=== PATIENT | female | born 1965 | race Caucasian/White ===

== ENCOUNTER 2016-12-12 07:38 | Day surgery (SDC) | payer OTHER ==
[2016-12-12] MEDS ORDERED: LACTATED RINGERS 1,000 ML ONE (07:44)
[2016-12-12] MEDS ORDERED: IV START KIT ONE (07:44)
[2016-12-12] MEDS ORDERED: PROPOFOL 40 ML IV ONE (09:08)
[2016-12-12] MEDS ORDERED: LIDOCAINE 2% (PRES FREE) 5 ML VIAL ONE (09:08)
== END 2016-12-12 10:50 | disposition home or self-care (01) ==
LOC: SDC 07:38
PROVIDERS: ATTEND Family Medicine
PROC: 0DJD8ZZ Inspection of Lower Intestinal Tract, Via Natural or Artificial Opening Endoscopic (ICD-10-PCS; principal; 2016-12-12)
DX: Z12.11 Encounter for screening for malignant neoplasm of colon (principal); E03.9 Hypothyroidism, unspecified; I10 Essential (primary) hypertension; F32.89 Other specified depressive episodes; E66.01 Morbid (severe) obesity due to excess calories; Z80.1 Family history of malignant neoplasm of trachea, bronchus and lung; Z68.44 Body mass index [BMI] 60.0-69.9, adult
CPT/HCPCS: 45378; J7120